=== PATIENT | female | born 1955 | race Caucasian/White ===

== ENCOUNTER → 2017-01-02 | Outpatient (CLI) | payer BC ==
--- NOTE | 2017-01-02 08:33 | P.HPOB ---
History of Present Illness H&P Date: 01/02/17 Chief Complaint: The patient is here for her routine gynecologic exam. This is a 61 year old with an LMP of 2004. The patient is without gynecologic complaints and denies any postmenopausal bleeding. Review of Systems The patient denies respiratory, cardiac or G.I. problems. Past Medical History Past Medical History: No Reported History Past Surgical History: Tubal Ligation Additional Past Surgical History / Comment(s): Colonoscopy in 2015. Past Psychological History: No Psychological Hx Reported Smoking Status: Never smoker Past Alcohol Use History: Occasional (She has approximately 6 alcohol containing drinks per week.) Past Drug Use History: None Reported - Past Family History Brother(s) Family Medical History: Cancer (Cancer of the throat.) Medications and Allergies Home Medications and Allergies Comment(s): Vitamin B12 500 mg once daily and vitamin D 1000 units daily. Allergies Allergy/AdvReac Type Severity Reaction Status Date / Time erythromycin base Allergy Rash/Hives Verified 01/02/17 08:27 Exam - Vital Signs Vital signs: Blood pressure 120/82, height 5'3", weight 133 pounds, BMI 23, temperature 97.7 , pulse 62. This is a well-developed well-nourished white female who is alert and oriented times 3 in no acute distress. HEENT: Within normal limits. NECK: Supple without mass or thyromegaly. CHEST AND LUNGS: Clear to auscultation. HEART: Regular rate and rhythm. BREASTS: Are without mass or discharge. AXILLARY EXAM: Negative for adenopathy. BACK: Negative for CVA tenderness. ABDOMEN: Soft, nontender, without palpable masses. PELVIC EXAM: Normal external genitalia with mild atrophy. Cervix and vagina appear normal with mild atrophy. There is no unusual discharge. There is no evidence of prolapse. The uterus is midposition, nongravid size and nontender. There are no palpable adnexal masses or tenderness. RECTAL EXAM: recto vaginal exam is negative for mass or tenderness and is negative for occult blood. EXTREMITIES: Nontender. IMPRESSION: 1. 61 year old menopausal female with normal gynecologic exam. PLAN: 1. Pap smear was deferred since she had a normal one last year. 2. Self breast examination was discussed. 3. She is scheduled for mammogram in approximately 2 weeks and an order slip was given to the patient for this. 4. Osteoporosis prevention was discussed. Bone density testing was recommended and in order slip was given to the patient for this. 5. She will return in one year.
== END | disposition home or self-care (01) ==
LOC: WWCWWP 07:42
PROVIDERS: ATTEND Obstetrics & Gynecology
DX: Z01.419 Encounter for gynecological examination (general) (routine) without abnormal findings (principal)

== ENCOUNTER → 2018-05-06 | Outpatient (CLI) | payer BC ==
[2018-05-06 15:20] VITALS: BP 125/84; PULSE 72; RESP 16; TEMP 98.3; BMI 23.7
--- NOTE | 2018-05-06 15:59 | P.HPOB ---
History of Present Illness H&P Date: 05/06/18 Chief Complaint: The patient is here for her routine gynecologic exam and ma mmogram. This is a 62-year-old with an LMP of 2004. The patient is without gynecologic complaints and denies any postmenopausal bleeding. Review of Systems The patient's weight has been stable over the last year. She denies respiratory, cardiac, or G.I. problems. 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 Osteoporosis. 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 Cryotherapy of the cervix for dysplasia in her 30s. History of Any Multi-Drug Resistant Organisms: None Reported Past Surgical History: Tubal Ligation Additional Past Surgical History / Comment(s): Cryotherapy of the cervix in her 30s. Colonoscopy in 2014. Past Psychological History: No Psychological Hx Reported Smoking Status: Never smoker Past Alcohol Use History: Occasional (1 to 3 per week) Past Drug Use History: None Reported Additional History: She is and has been with her boyfriend since approximately 2010. She works in [employer] that makes [employer]. - Past Family History Brother(s) Family Medical History: Cancer Additional Family Medical History / Comment(s): Some type of throat cancer. Medications and Allergies Home Medications Medication Instructions Recorded Confirmed Type Cholecalciferol [Vitamin D3] 1,000 unit PO DAILY 05/06/18 05/06/18 History Allergies Allergy/AdvReac Type Severity Reaction Status Date / Time erythromycin base Allergy Rash/Hives Verified 05/06/18 15:21 Exam Vital Signs Temp Pulse Resp BP Pulse Ox 05/06/18 15:13 98.3 F 72 16 125/84 96 Intake and Output 05/06/18 05/06/18 05/06/18 06:59 14:59 22:59 Other: Weight 60.781 kg Height 5'3", weight 134 pounds, BMI 23.7. This is a well-developed well-nourished white female who is alert and oriented times 3 in no acute distress. HEENT: Within normal limits. NECK: Supple without mass or thyromegaly. CHEST AND LUNGS: Clear to auscultation. HEART: Regular rate and rhythm. BREASTS: Are without mass or discharge. Small area of seborrheic keratosis measuring approximately 6 mm at the 7 o'clock position of the right breast. The patient states this is been there for many years AXILLARY EXAM: Negative for adenopathy. BACK: Negative for CVA tenderness. ABDOMEN: Soft, nontender, without palpable masses. PELVIC EXAM: Normal external genitalia with mild atrophy. Cervix and vagina appear normal with mild atrophy. There is no unusual discharge. There is no evidence of prolapse. The uterus is midposition, nongravid size and nontender. There are no palpable adnexal masses or tenderness. RECTAL EXAM: rectovaginal exam is negative for mass or tenderness and is negative for occult blood. EXTREMITIES: Nontender. IMPRESSION: 1. 62-year-old menopausal female with normal gynecologic exam. 2. History of osteoporosis and has declined medication for this. PLAN: 1. Pap smear was performed. 2. Self breast awareness was discussed with the patient. 3. Screening mammogram will be done today. 4. Osteoporosis management was discussed. I have stressed the importance of adequate calcium, vitamin D and regular exercise. Recommended amounts of calcium and vitamin D were also discussed. She again is declining treatment for osteoporosis. She would like to repeat the bone density testing next year and she may reconsider treatment. 5. The patient states she sees Dr. Harding, the registered travel nurse, for her skin cancer. She will follow-up with him and I have recommended that she show him the small area of seborrheic keratosis on the breast so he can follow that as well. 6.She was advised to return in one year for her annual well woman exam.
--- NOTE | 2018-05-08 10:03 | MM ---
Reason for exam: screening (asymptomatic). Last mammogram was performed 1 year and 3 months ago. History: Patient is postmenopausal and has history of other cancer at age 62. Benign cyst aspiration of the left breast, November 18, 2002. 3 cyst aspirations of the left breast. Cyst aspiration of the right breast. 2 excisional biopsies of the left breast. Took hormonal contraceptives for 10 years. Physical Findings: A clinical breast exam by your physician is recommended on an annual basis and results should be correlated with mammographic findings. MG 3D Screening Mammo W/Cad Bilateral CC and MLO view(s) were taken. Prior study comparison: January 22, 2017, bilateral MG screening mammo w CAD. November 30, 2015, bilateral MG screening mammo w CAD. The breast tissue is heterogeneously dense. This may lower the sensitivity of mammography. Stable subtle distortion 11 o'clock left breast corresponding to prior excision. No significant changes when compared with prior studies. ASSESSMENT: Benign, BI-RAD 2 RECOMMENDATION: Routine screening mammogram of both breasts in 1 year.
== END ==
LOC: WWCWWP 15:05
PROVIDERS: ATTEND Obstetrics & Gynecology
DX: Z12.31 Encounter for screening mammogram for malignant neoplasm of breast (principal)
CPT/HCPCS: 77063; 77067

== ENCOUNTER → 2018-12-03 | Outpatient (CLI) | payer BC ==
--- NOTE | 2018-12-03 11:56 | ECHOF ---
Referral Reason:PALPITATIONS MEASUREMENTS -------- HEIGHT: 160.0 cm WEIGHT: 56.2 kg BP: RVIDd: 2.3 cm (< 3.3) IVSd: 1.1 cm (0.6 - 1.1) LVIDd: 3.2 cm (3.9 - 5.3) LVPWd: 1.3 cm (0.6 - 1.1) IVSs: 1.9 cm LVIDs: 1.1 cm LVPWs: 1.6 cm LAESV Index (A-L): 13.86 ml/m Ao Diam: 2.7 cm (2.0 - 3.7) AV Cusp: 1.7 cm (1.5 - 2.6) LA Diam: 2.6 cm (2.7 - 3.8) MV EXCURSION: 20.043 mm (> 18.000) MV EF SLOPE: 83 mm/s (70 - 150) EPSS: 0.4 cm MV E Martin: 0.56 m/s MV DecT: 178 ms MV A Martin: 0.73 m/s MV E/A Ratio: 0.77 AR PHT: 389 ms RAP: 5.00 mmHg RVSP: 19.61 mmHg TAPSE: 22.78 mm FINDINGS -------- Sinus rhythm. This was a technically good study. The left ventricular size is normal. There is mild concentric left ventricular hypertrophy. Overa ll left ventricular systolic function is normal with, an EF between 55 - 60 %. The diastolic fillin g pattern is normal for the age of the patient 7.74. The right ventricle is normal in size. The right ventricular systolic function is normal. The left atrial size is normal. Normal LA size by volume 22+/-6 ml/m2. The right atrial size is normal. The aortic valve is trileaflet and appears structurally normal. There is mild aortic regurgitation. The mitral valve is normal. The mitral valve leaflets are mildly thickened. Mild mitral annular c alcification present. Mild mitral regurgitation is present. The tricuspid valve appears structurally normal. Mild tricuspid regurgitation present. Right vent ricular systolic pressure is normal at < 35 mmHg. There is no pulmonic regurgitation present. The aortic root size is normal. Normal inferior vena cava with normal inspiratory collapse consistent with estimated right atrial pre ssure of 5 mmHg. There is no pericardial effusion. CONCLUSIONS -------- 1. Sinus rhythm. 2. This was a technically good study. 3. The left ventricular size is normal. 4. There is mild concentric left ventricular hypertrophy. 5. Overall left ventricular systolic function is normal with, an EF between 55 - 60 %. 6. The diastolic filling pattern is normal for the age of the patient 7.74 7. The right ventricle is normal in size. 8. The right ventricular systolic function is normal. 9. The left atrial size is normal. 10. Normal LA size by volume 22+/-6 ml/m2. 11. The right atrial size is normal. 12. The aortic valve is trileaflet and appears structurally normal. 13. There is mild aortic regurgitation. 14. The mitral valve is normal. 15. The mitral valve leaflets are mildly thickened. 16. Mild mitral annular calcification present. 17. Mild mitral regurgitation is present. 18. The tricuspid valve appears structurally normal. 19. Mild tricuspid regurgitation present. 20. Right ventricular systolic pressure is normal at < 35 mmHg. 21. There is no pulmonic regurgitation present. 22. The aortic root size is normal. 23. Normal inferior vena cava with normal inspiratory collapse consistent with estimated right atrial pressure of 5 mmHg. 24. There is no pericardial effusion. METAL BURRER: Shi Matamoros RDCS
--- NOTE | 2018-12-03 15:47 | US ---
EXAMINATION TYPE: US carotid duplex BILAT DATE OF EXAM: 12/03/2018 COMPARISON: NONE CLINICAL HISTORY: R00.2 Palpitations, E78.00 Hypercholesterolemia. Hypotension, heart racing per eula ent EXAM MEASUREMENTS: RIGHT: Peak Systolic Velocity (PSV) cm/sec ----- Right CCA: 72.1 ----- Right ICA: 64.5 ----- Right ECA: 68.8 ICA/CCA ratio: 0.9 RIGHT: End Diastole cm/sec ----- Right CCA: 28.4 ----- Right ICA: 27.8 ----- Right ECA: 17.4 LEFT: Peak Systolic Velocity (PSV) cm/sec ----- Left CCA: 67.1 ----- Left ICA: 59.2 ----- Left ECA: 60.1 ICA/CCA ratio: 0.9 LEFT: End Diastole cm/sec ----- Left CCA: 28.7 ----- Left ICA: 23.5 ----- Left ECA: 20.0 VERTEBRALS (direction of flow): Right Vertebral: Antegrade Left Vertebral: Antegrade Rhythm: Normal No plaque, elevated velocities, or significant stenosis. No wall thickening. IMPRESSION: 1. No significant flow-limiting stenosis. Criteria for Assigning % of Stenosis / Diameter reduction (Estimation based on the indirect measurements of the internal carotid artery velocities (ICA PSV). 1. Normal (no stenosis)=ICA PSV < 125 cm/s: ratio < 2.0: ICA EDV<40 cm/s. 2. Less than 50% stenosis=ICA PSV < 125 cm/s: ratio < 2.0: ICA EDV<40 cm/s. 3. 50 to 69% stenosis=ICA PSV of 125 to 230 cm/s: ration 2.0 ? 4.0: ICA EDV 40-100 cm/s. 4. Greater than 70% stenosis to near occlusion= ICA PSV > 230 cm/s: ratio > 4.0: ICA EDV > 100 cm/s. 5. Near occlusion= ICA PSV velocities may be low or undetectable: variable ratio and ICA EDV. 6. Total occlusion=unable to detect flow.
== END | disposition home or self-care (01) ==
LOC: RADUSWWP 09:56
PROVIDERS: ATTEND Family Medicine
DX: I08.3 Combined rheumatic disorders of mitral, aortic and tricuspid valves (principal); E78.00 Pure hypercholesterolemia, unspecified
CPT/HCPCS: 93270; 93306; 93880

== ENCOUNTER → 2019-10-20 | Outpatient (CLI) | payer BC, OTHER ==
[2019-10-20 11:23] VITALS: BP 121/83; PULSE 65; RESP 16; TEMP 98.6
--- NOTE | 2019-10-20 11:53 | P.HPOB ---
History of Present Illness H&P Date: 10/20/19 Chief Complaint: The patient is here for her routine gynecologic exam. This is a 64-year-old with an LMP of 2004. The patient is without gynecologic complaints and denies any postmenopausal bleeding. Review of Systems The patient's weight has been stable over the last year. She denies respiratory, cardiac, or G.I. problems. 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 Osteoporosis. 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 Cryotherapy of the cervix for dysplasia in her 30s. History of Any Multi-Drug Resistant Organisms: None Reported Past Surgical History: Tubal Ligation Additional Past Surgical History / Comment(s): Cryotherapy of the cervix in her 30s. Colonoscopy in 2014. Past Psychological History: No Psychological Hx Reported Smoking Status: Never smoker Past Alcohol Use History: Occasional (3 per week) Past Drug Use History: None Reported Additional History: She is and has been with her boyfriend since 2010 and lives with him. She is currently unemployed, but previously worked in [employer] before [employer]. - Past Family History Brother(s) Family Medical History: Cancer Additional Family Medical History / Comment(s): Some type of throat cancer. Medications and Allergies Home Medications Medication Instructions Recorded Confirmed Type Cholecalciferol [Vitamin D3] 1,000 unit PO DAILY 05/06/18 10/20/19 History Allergies Allergy/AdvReac Type Severity Reaction Status Date / Time erythromycin base Allergy Rash/Hives Verified 10/20/19 11:17 Exam Vital Signs Temp Pulse Resp BP Pulse Ox 10/20/19 11:20 98.6 F 65 16 121/83 97 Intake and Output 10/19/19 10/20/19 10/20/19 22:59 06:59 14:59 Other: Weight 60.781 kg Height 5 feet 3 inches, weight 134 pounds, BMI 23.7. This is a well-developed well-nourished white female who is alert and oriented times 3 in no acute distress. HEENT: Within normal limits. NECK: Supple without mass or thyromegaly. CHEST AND LUNGS: Clear to auscultation. HEART: Regular rate and rhythm. BREASTS: Are without mass or discharge. AXILLARY EXAM: Negative for adenopathy. BACK: Negative for CVA tenderness. ABDOMEN: Soft, nontender, without palpable masses. PELVIC EXAM: Normal external genitalia with mild atrophy. Cervix and vagina appear normal with mild atrophy. There is no unusual discharge. There is no evidence of prolapse. The uterus is midposition, nongravid size and nontender. There are no palpable adnexal masses or tenderness. RECTAL EXAM: Rectovaginal exam is negative for mass or tenderness and is negative for occult blood. EXTREMITIES: Nontender. IMPRESSION: 1. 64-year-old menopausal female with normal gynecologic exam. 2. History of osteoporosis declining medication at this time. PLAN: 1. Pap smear was deferred since she had a normal one on 05/06/2018. 2. Self breast awareness was discussed with the patient. 3. Screening mammogram is due and she has an appointment for this on 12/21/2019. The order slip was given to the patient for this. 4. Osteoporosis management was discussed. I have stressed the importance of adequate calcium, vitamin D and regular exercise. Recommended amounts of calcium and vitamin D were also discussed. I have again recommended medical treatment for osteoporosis to try to reduce the risk of bone fracture. She is declining treatment at this time. She would like to redo her bone density testing since it has been more than 2 years and the order slip was given to the patient for this. She states she will consider treatment if there has been a significant decline in her bone density. 5. She was advised to return in one year for her annual well woman exam.
== END | disposition home or self-care (01) ==
LOC: WWCWWP 11:09
PROVIDERS: ATTEND Obstetrics & Gynecology
DX: Z53.9 Procedure and treatment not carried out, unspecified reason (principal)

== ENCOUNTER → 2019-12-21 | Outpatient (CLI) | payer OTHER ==
--- NOTE | 2019-12-21 11:56 | BD ---
EXAMINATION TYPE: Axial Bone Density DATE OF EXAM: 12/21/2019 COMPARISON: 01/22/2017 CLINICAL HISTORY: Height: 63 IN Weight: 129 LBS RISK FACTORS HISTORY OF: Active: YES Postmenopausal woman: AGE 47 MEDICATIONS: Additional Medications: VIT D EXAM MEASUREMENTS: Bone mineral densitometry was performed using the [employer]. Bone mineral density as measured about the Lumbar spine is: ----- L1-L4(G/cm2): 0.885 T Score Values are as follows: ----- L2: -3.3 ----- L3: -2.4 ----- L4: -1.8 ----- L1-L4: -2.5 Bone mineral density has: Decreased -3.9% since study of: 01/22/2017 Bone mineral density about the R hip (g/cm2): 0.641 Bone mineral density about the L hip (g/cm2): 0.635 T Score values are as follows: -----R Neck: -2.9 -----L Neck: -2.9 -----R Total: -2.4 -----L Total: -2.2 Bone mineral density has: Decreased -2.6% since study of: 01/22/2017 IMPRESSION: Osteoporosis NOTE: T-SCORE=SD OF THE YOUNG ADULT MEAN.
--- NOTE | 2019-12-22 09:41 | MM ---
Reason for exam: screening (asymptomatic). Last mammogram was performed 1 year and 7 months ago. History: Patient is postmenopausal and has history of other cancer at age 62. Benign cyst aspiration of the left breast, November 18, 2002. 3 cyst aspirations of the left breast. Cyst aspiration of the right breast. 2 excisional biopsies of the left breast. Took hormonal contraceptives for 10 years. Physical Findings: A clinical breast exam by your physician is recommended on an annual basis and results should be correlated with mammographic findings. MG 3D Screening Mammo W/Cad Bilateral CC and MLO view(s) were taken. Prior study comparison: May 06, 2018, bilateral MG 3d screening mammo w/cad. January 22, 2017, bilateral MG screening mammo w CAD. The breast tissue is heterogeneously dense. This may lower the sensitivity of mammography. Stable benign calcifications. There is no discrete abnormality. No significant changes when compared with prior studies. ASSESSMENT: Benign, BI-RAD 2 RECOMMENDATION: Routine screening mammogram of both breasts in 1 year.
== END | disposition home or self-care (01) ==
LOC: RADBDWWP 07:08
PROVIDERS: ATTEND Obstetrics & Gynecology
DX: Z12.31 Encounter for screening mammogram for malignant neoplasm of breast (principal); M81.0 Age-related osteoporosis without current pathological fracture; Z78.0 Asymptomatic menopausal state
CPT/HCPCS: 77063; 77067; 77080

== ENCOUNTER → 2021-02-08 | Outpatient (CLI) | payer OTHER ==
[2021-02-08 09:50] VITALS: BP 113/77; PULSE 75; RESP 16; TEMP 97.4
--- NOTE | 2021-02-08 10:47 | P.HPOB ---
History of Present Illness H&P Date: 02/08/21 Chief Complaint: The patient is here for her routine gynecologic exam. This is a 65-year-old 012 with an LMP of 2004. The patient is without gynecologic complaints and denies any postmenopausal bleeding. The patient had bone density tests in 2017 in 2019 which both showed osteoporosis. After each of the bone density tests I had recommended medication treatment for osteoporosis, but each time the patient chose not to use medication. Review of Systems The patient has lost 7 pounds over the last year. She denies respiratory, cardiac, or G.I. problems. 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 Osteoporosis. 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 Cryotherapy of the cervix for dysplasia in her 30s. History of Any Multi-Drug Resistant Organisms: None Reported Past Surgical History: Tubal Ligation Additional Past Surgical History / Comment(s): Cryotherapy of the cervix in her 30s. Colonoscopy in 2014. Past Psychological History: No Psychological Hx Reported Smoking Status: Never smoker Past Alcohol Use History: Occasional (3 per week) Past Drug Use History: None Reported Additional History: She is and has been with her boyfriend since 2010 and lives with him. She is currently unemployed. - Past Family History Brother(s) Family Medical History: Cancer Additional Family Medical History / Comment(s): Some type of throat cancer. Medications and Allergies Home Medications Medication Instructions Recorded Confirmed Type Cholecalciferol [Vitamin D3] 1,000 unit PO DAILY 05/06/18 02/08/21 History Allergies Allergy/AdvReac Type Severity Reaction Status Date / Time erythromycin base Allergy Rash/Hives Verified 02/08/21 09:38 Exam Vital Signs Temp Pulse Resp BP Pulse Ox 02/08/21 09:36 97.4 F L 75 16 113/77 99 Intake and Output 02/07/21 02/08/21 02/08/21 22:59 06:59 14:59 Other: Weight 57.606 kg Height 5 feet 4 inches, weight 127 pounds, BMI 21.8. This is a well-developed well-nourished white female who is alert and oriented times 3 in no acute distress. HEENT: Within normal limits. NECK: Supple without mass or thyromegaly. CHEST AND LUNGS: Clear to auscultation. HEART: Regular rate and rhythm. BREASTS: Are without mass or discharge. AXILLARY EXAM: Negative for adenopathy. BACK: Negative for CVA tenderness. ABDOMEN: Soft, nontender, without palpable masses. PELVIC EXAM: Normal external genitalia with mild atrophy. Cervix and vagina appear normal with mild atrophy. There is no unusual discharge. There is no evidence of prolapse. The uterus is midposition, nongravid size and nontender. There are no palpable adnexal masses or tenderness. RECTAL EXAM: Rectovaginal exam is negative for mass or tenderness and is negative for occult blood. EXTREMITIES: Nontender. IMPRESSION: 1. 65-year-old menopausal female with normal gynecologic exam. 2. History of osteoporosis. The patient has declined medication treatment in the past, but she is now considering it. PLAN: 1. Pap smear cotest was performed. If this is negative we will discontinue Pap smears. 2. Self breast awareness was discussed with the patient. We have also discussed symptoms associated with inflammatory breast cancer. 3. Screening mammogram is due. She has an appointment in March 2021. The order slip was given to the patient for this. 4. Osteoporosis management was discussed. I have stressed the importance of adequate calcium, vitamin D and regular exercise. Recommended amounts of calcium and vitamin D were also discussed. I have again recommended taking medication for her osteoporosis to help decrease the risk for bone fracture. We have discussed Fosamax including possible risks and benefits. We have discussed the possible increased risk for esophageal ulceration and I have stressed the importance that if she does take the medication, that she should take it properly. Instructions were given on how it should be taken. If also discussed the possible risk of osteonecrosis of the jaw with jaw surgery or certain types of dental surgery involving the jaw. She should not take the medication if she has upcoming procedures like these, or discontinue the medication if she learns of the need for these types of surgeries. Information on osteoporosis and Fo samax were given to the patient. I have also given her a lab slip for a serum creatinine and serum calcium levels. She understands that if she wants to proceed with this medication that she should have these blood tests drawn or get the results of these blood tests if drawn by her PCP already. At this time she is leaning toward starting medication for osteoporosis, but will review the information given to her before she makes her final decision. 5. She has not received a Covid vaccination. I have recommended that she get vaccinated for Covid. We have discussed risks of getting Covid while on vaccinated including severe illness and possible . She will consider this. 6. She was advised to return in one year for her annual well woman exam.
== END ==
LOC: WWCWWP 09:07
PROVIDERS: ATTEND Obstetrics & Gynecology
DX: Z01.419 Encounter for gynecological examination (general) (routine) without abnormal findings (principal); Z87.39 Personal history of other diseases of the musculoskeletal system and connective tissue; Z88.1 Allergy status to other antibiotic agents

== ENCOUNTER → 2021-05-02 | Outpatient (CLI) | payer OTHER ==
--- NOTE | 2021-05-03 08:39 | MM ---
Reason for exam: screening (asymptomatic). Last mammogram was performed 1 year and 4 months ago. History: Patient is postmenopausal and has history of other cancer at age 62. Benign cyst aspiration of the left breast, November 18, 2002. 3 cyst aspirations of the left breast. Cyst aspiration of the right breast. 2 excisional biopsies of the left breast. Took hormonal contraceptives for 10 years. Physical Findings: A clinical breast exam by your physician is recommended on an annual basis and results should be correlated with mammographic findings. MG 3D Screening Mammo W/Cad Bilateral CC and MLO view(s) were taken. Prior study comparison: December 21, 2019, bilateral MG 3d screening mammo w/cad. May 06, 2018, bilateral MG 3d screening mammo w/cad. The breast tissue is heterogeneously dense. This may lower the sensitivity of mammography. There are benign appearing round calcifications bilaterally. There is no discrete abnormality. ASSESSMENT: Benign, BI-RAD 2 RECOMMENDATION: Routine screening mammogram of both breasts in 1 year.
== END | disposition home or self-care (01) ==
LOC: RADMAMWWP 07:13
PROVIDERS: ATTEND Obstetrics & Gynecology
DX: Z12.31 Encounter for screening mammogram for malignant neoplasm of breast (principal); Z78.0 Asymptomatic menopausal state
CPT/HCPCS: 77063; 77067

== ENCOUNTER → 2022-07-10 | Outpatient (CLI) | payer MEDICARE ==
[2022-07-10 10:43] VITALS: BP 132/87; PULSE 71; RESP 16; TEMP 97.8
--- NOTE | 2022-07-10 12:41 | P.HPOB ---
History of Present Illness H&P Date: 07/10/22 Chief Complaint: The patient is here for her routine gynecologic exam and ma mmogram. This is a 67-year-old 012 with an LMP of 2004. The patient is without gynecologic complaints. She was diagnosed with osteoporosis by bone density testing in 2019. I had recommended that treatment with prescription medication for this. At that time she chose not to proceed with medical treatment. Review of Systems The patient has lost 12 pounds over the last 1-1/2 years. She denies respiratory, cardiac, or G.I. problems. Past Medical History Past Medical History: Cancer, Dementia Additional Past Medical History / Comment(s): Mild dementia. 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 Osteoporosis. 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 Cryotherapy of the cervix for dysplasia in her 30s. History of Any Multi-Drug Resistant Organisms: None Reported Past Surgical History: Tubal Ligation Additional Past Surgical History / Comment(s): Cryotherapy of the cervix in her 30s. Colonoscopy in 2014. Past Psychological History: No Psychological Hx Reported Smoking Status: Never smoker Past Alcohol Use History: Occasional Past Drug Use History: None Reported Additional History: She is and has been with her boyfriend since 2010 and they live together. She is sexually active. - Past Family History Brother(s) Family Medical History: Cancer Additional Family Medical History / Comment(s): Some type of throat cancer. Medications and Allergies Home Medications Medication Instructions Recorded Confirmed Type Cholecalciferol [Vitamin D3] 1,000 unit PO DAILY 05/06/18 07/10/22 History Memantine HCl 10 mg PO BID 07/10/22 07/10/22 History Allergies Allergy/AdvReac Type Severity Reaction Status Date / Time erythromycin base Allergy Rash/Hives Verified 07/10/22 10:39 Exam Vital Signs Temp Pulse Resp BP Pulse Ox 07/10/22 10:40 97.8 F 71 16 132/87 100 Intake and Output 07/09/22 07/10/22 07/10/22 22:59 06:59 14:59 Other: Weight 52.163 kg Height 5 feet 3 inches, weight 115 pounds, BMI 20.4. This is a well-developed well-nourished white female who is alert and oriented times 3 in no acute distress. HEENT: Within normal limits. NECK: Supple without mass or thyromegaly. CHEST AND LUNGS: Clear to auscultation. HEART: Regular rate and rhythm. BREASTS: Are without mass or discharge. AXILLARY EXAM: Negative for adenopathy. BACK: Negative for CVA tenderness. ABDOMEN: Soft, nontender, without palpable masses. PELVIC EXAM: Normal external genitalia with mild atrophy. Cervix and vagina appear normal with mild atrophy. There is no unusual discharge. There is no evidence of prolapse. The uterus is midposition, nongravid size and nontender. There are no palpable adnexal masses or tenderness. RECTAL EXAM: Rectovaginal exam is negative for mass or tenderness and is negative for occult blood. EXTREMITIES: Nontender. IMPRESSION: 1. 67-year-old menopausal female with normal gynecologic exam. 2. History of osteoporosis and she has chosen not to use prescription medications for this. PLAN: 1. Pap smears have been discontinued. 2. Self breast awareness was discussed with the patient. We have also discussed symptoms associated with inflammatory breast cancer. 3. Screening mammogram was done today. 4. Osteoporosis management was discussed with the patient. We have again discu ssed the option for medical treatment with prescription medications. We have decided to repeat the bone density testing since it has been more than 2 years since her last one. After reviewing the results, we will again consider medical treatment. 5. She was advised to return in one year for her annual well woman exam and as needed.
--- NOTE | 2022-07-11 19:13 | MM ---
Reason for Exam: Screening (asymptomatic). Last mammogram was performed 1 year(s) and 2 month(s) ago. Patient History: Menarche at age 16. First Full-Term at age 20. Postmenopausal. Other cancer, age 62. Patient used Hormonal Contraceptives for 10 years. Cyst Aspiration on the Right side. Cyst Aspiration on the Left side. Cyst Aspiration on the Left side. Cyst Aspiration on the Left side. Excisional Biopsy on the Left side. Excisional Biopsy on the Left side. 11/18/2002, Benign Cyst Aspiration on the left side. Risk Values: Teresa 5 year model risk: 1.7%. NCI Lifetime model risk: 6.0%. Prior Study Comparison: 05/06/2018 Bilateral Screening Mammogram, [facility]. 12/21/2019 Bilateral Screening Mammogram, [facility]. 05/02/2021 Bilateral Screening Mammogram, [facility]. Tissue Density: The breast tissue is heterogeneously dense. This may lower the sensitivity of mammography. Findings: Analyzed By CAD. Postexcisional scar redemonstrated on the left. Benign vascular and oil cyst calcifications. There is no suspicious group of microcalcifications or new suspicious mass in either breast. Overall Assessment: Benign, BI-RAD 2 Management: Screening Mammogram of both breasts in 1 year. . Patient should continue monthly self-breast exams. A clinical breast exam by your physician is recommended on an annual basis. This exam should not preclude additional follow-up of suspicious palpable abnormalities. Note on Teresa scores and lifetime risk: 1. A Teresa score greater than 3% is considered moderate risk. If this is the case, consider specialist referral to assess eligibility for a risk reducing agent. 2. If overall lifetime risk for the development of breast cancer is 20% or higher, the patient may qualify for future screening with alternating mammogram and breast MRI. Electronically signed and approved by: Jimmie Bolton M.D. Radiologist
== END ==
LOC: WWCWWP 09:59
PROVIDERS: ATTEND Obstetrics & Gynecology
DX: Z01.419 Encounter for gynecological examination (general) (routine) without abnormal findings (principal); F03.A0 Unspecified dementia, mild, without behavioral disturbance, psychotic disturbance, mood disturbance, and anxiety; M81.0 Age-related osteoporosis without current pathological fracture; Z85.828 Personal history of other malignant neoplasm of skin; Z88.1 Allergy status to other antibiotic agents
CPT/HCPCS: 77063; 77067

== ENCOUNTER → 2022-07-18 | Outpatient (CLI) | payer MEDICARE ==
--- NOTE | 2022-07-18 10:47 | MR ---
EXAMINATION TYPE: MR brain/orbits wo con DATE OF EXAM: 07/18/2022 COMPARISON: None HISTORY: Decreased peripheral vision. Standard multiplanar, multisequence MRI departmental protocol Multiplanar, multisequence images of the brain and orbits were acquired without contrast. Diffusion w eighted imaging was performed. FINDINGS: Perfusion imaging demonstrates no evidence of acute ischemia. There is mild to moderate generalized degenerative change with numerous focal areas of abnormal signa l seen scattered throughout the white matter bilaterally specific pattern. Most typical of remote eve rovascular ischemia. There is focal prominent CSF structures in the frontal lobes bilaterally measuring approximately 1.7 cm on the right and 1.5 cm in length. Differential diagnosis would include asymmetric atrophy or smal l arachnoid cyst. There also is a prominent CSF space and prepontine cistern could represent addition al arachnoid cyst. Measures 1.5 cm. Craniocervical junction maintained. Sella turcica is normal. Orbits are symmetric. Changes of chronic sinusitis noted. Orbital MRI demonstrates the optic nerves to be symmetric in size and signal. The globes are symmetri c in appearance. No abnormal signal noted. Extraocular muscles have a normal appearance. There is no evidence of intraconal or extraconal mass. Lacrimal glands have a normal appearance and are symmetric in size. Optic chiasm has a normal appearance. IMPRESSION: 1. Mild to moderate generalized degenerative and remote ischemic white matter change. 2. CSF focal prominence of the prepontine cistern and bilateral frontal lobes may represent small salvador chnoid cysts. 3. Orbits have a symmetric appearance with no definite abnormality seen.
== END | disposition home or self-care (01) ==
LOC: RADMRIMAIN 08:42
PROVIDERS: ATTEND Family Medicine
DX: I67.82 Cerebral ischemia (principal); G93.0 Cerebral cysts; H53.459 Other localized visual field defect, unspecified eye
CPT/HCPCS: 70540; 70551

== ENCOUNTER → 2023-02-07 | Outpatient (CLI) | payer MEDICARE ==
--- NOTE | 2023-02-07 14:09 | BD ---
EXAMINATION TYPE: Axial Bone Density DATE OF EXAM: 02/07/2023 CLINICAL HISTORY: 67 years old Female. ICD-10 CODE: Z78.0 ASYMPTOMATIC MENOPAUSAL STATE Height: 62.5 Weight: 110 FRAX RISK QUESTIONS: Secondary Osteoporosis: no RISK FACTORS HISTORY OF: Family History of Osteoporosis: no Active: yes Diet low in dairy products/other sources of calcium: no Postmenopausal woman: yes Lost more than 2 inches in height since high school: no Frequent falls: no MEDICATIONS: Additional Medications: yes dementia meds , vit d, calcium EXAM MEASUREMENTS: Bone mineral densitometry was performed using the [employer] System. Bone mineral density as measured about the Lumbar spine is: ----- L1-L4(G/cm2): 0.890 T Score Values are as follows: ----- L1: -2.5 ----- L2: -2.9 ----- L3: -1.9 ----- L4: -2.6 ----- L1-L4: -2.4 Z Score Values are as follows: ----- L1: -0.4 ----- L2: -0.8 ----- L3: 0.2 ----- L4: -0.5 ----- L1-L4: -0.3 Bone mineral density has: Increased 0.6% since study of: 12/21/2019 Bone mineral density about the R hip (g/cm2): 0.656 Bone mineral density about the L hip (g/cm2): 0.674 T Score values are as follows: -----R Neck: -3.3 -----L Neck: -3.4 -----R Total: -2.8 -----L Total: -2.7 Z Score values are as follows: -----R Neck: -1.4 -----L Neck: -1.5 -----R Total: -1.2 -----L Total: -1.0 Bone mineral density has: Decreased -7.1% since study of: 12/21/2019 FRAX%s: The graph provided illustrates a 18.4% chance for a major osteoporotic fx and a 7.1% chance f or the hips probability for fx in 10 years time. IMPRESSION: Osteoporosis (T Score less than -2.5). There is increased fracture risk and therapy is usually indicated based on age. Re-Screen 1-2 years. NOTE: T-SCORE=SD OF THE YOUNG ADULT MEAN.
== END | disposition home or self-care (01) ==
LOC: RADBDWWP 09:28
PROVIDERS: ATTEND Obstetrics & Gynecology
DX: M81.0 Age-related osteoporosis without current pathological fracture (principal); Z78.0 Asymptomatic menopausal state
CPT/HCPCS: 77080

== ENCOUNTER → 2024-05-07 | Outpatient (CLI) | payer MEDICARE ==
--- NOTE | 2024-05-07 11:21 | MM ---
Reason for Exam: Screening (asymptomatic). Last mammogram was performed 1 year(s) and 10 month(s) ago. Patient History: Menarche at age 16. First Full-Term at age 20. Postmenopausal. Other cancer, age 62. Patient used Hormonal Contraceptives for 10 years. Cyst Aspiration on the Right side. Cyst Aspiration on the Left side. Cyst Aspiration on the Left side. Cyst Aspiration on the Left side. Excisional Biopsy on the Left side. Excisional Biopsy on the Left side. 11/18/2002, Benign Cyst Aspiration on the left side. Risk Values: Teresa 5 year model risk: 1.7%. NCI Lifetime model risk: 5.7%. Prior Study Comparison: 01/22/2017 Bilateral Screening Mammogram, [facility]. 05/06/2018 Bilateral Screening Mammogram, [facility]. 12/21/2019 Bilateral Screening Mammogram, [facility]. 05/02/2021 Bilateral Screening Mammogram, [facility]. 07/10/2022 Bilateral MG 3D screening mammo w/cad, [facility]. Tissue Density: The breasts are heterogeneously dense, which may obscure small masses. Findings: Analyzed By CAD. There is no suspicious group of microcalcifications or new suspicious mass in either breast. Benign-appearing calcifications. Overall Assessment: Benign, BI-RAD 2 Management: Screening Mammogram of both breasts in 1 year. . Patient should continue monthly self-breast exams. A clinical breast exam by your physician is recommended on an annual basis. This exam should not preclude additional follow-up of suspicious palpable abnormalities. Note on Teresa scores and lifetime risk: 1. A Teresa score greater than 3% is considered moderate risk. If this is the case, consider specialist referral to assess eligibility for a risk reducing agent. 2. If overall lifetime risk for the development of breast cancer is 20% or higher, the patient may qualify for future screening with alternating mammogram and breast MRI. [facility], , 05/07/2024 11:18 AM. Electronically signed and approved by: Yonathan Alejandro M.D. Radiologis
== END | disposition home or self-care (01) ==
LOC: RADMAMWWP 10:34
PROVIDERS: ATTEND Family Medicine
DX: Z12.31 Encounter for screening mammogram for malignant neoplasm of breast (principal); R92.333 Mammographic heterogeneous density, bilateral breasts; M81.0 Age-related osteoporosis without current pathological fracture; Z78.0 Asymptomatic menopausal state; Z92.0 Personal history of contraception
CPT/HCPCS: 77063; 77067

== ENCOUNTER 2024-05-20 08:57 | Day surgery (SDC) | payer MEDICARE ==
[2024-05-07 11:38] VITALS: BMI 20.7
[2024-05-20] MEDS: IV FLUID CONTINUATION 1,000 ML IV ONE (09:15)
[2024-05-20 09:27] VITALS: RESP 16; TEMP 97.4
[2024-05-20] MEDS: LACTATED RINGERS 1,000 ML IV SCH (09:37)
[2024-05-20] MEDS ORDERED: PROPOFOL 10 MG/ML 20 ML VIAL IV ONE (09:46)
--- NOTE | 2024-05-20 10:08 | P.PCN ---
Date of Procedure: 05/20/24 Procedure(s) Performed: BRIEF HISTORY: Patient is a 68-year-old pleasant white female scheduled for an elective colonoscopy as a part of screening for colon cancer. PROCEDURE PERFORMED: Colonoscopy. PREOPERATIVE DIAGNOSIS: Screening for colon cancer. IV sedation per Anesthesia. PROCEDURE: After informed consent was obtained, the patient, was brought into the endoscopy unit. IV sedation was administered by Anesthesia under continuous monitoring. Digital rectal examination was normal. Initially the Olympus CF-160 flexible video colonoscope was then inserted in the rectum, gradually advanced into the cecum without any difficulty. Careful examination was performed as the scope was gradually being withdrawn. Ileocecal valve and the appendiceal orifice were visualized and appeared normal. Prep was excellent. Mucosa of the cecum, ascending colon, transverse colon, descending colon, sigmoid colon, and rectum appeared normal. Retroflexion was performed in the rectum and no lesions were seen. The patient tolerated the procedure well. IMPRESSION: Normal-appearing colon from rectum to cecum . RECOMMENDATIONS: Findings of this examination were discussed with the patient as well as her family. She was advised to have repeat screening colonoscopy in 10 years
[2024-05-20] MEDS: LACTATED RINGERS 1,000 ML IV ONE (10:12)
[2024-05-20 11:17] VITALS: BP 102/80; PULSE 65
== END 2024-05-20 11:29 | disposition home or self-care (01) ==
LOC: ORWHC2ENDO 08:57
PROVIDERS: ATTEND Internal Medicine Gastroenterology
DX: Z12.11 Encounter for screening for malignant neoplasm of colon (principal)
CPT/HCPCS: J2704; G0121